=== PATIENT | male | born 1985 | race Caucasian/White ===

== ENCOUNTER 2017-10-18 16:13 | Emergency (ER) | payer MEDICAID ==
[~2017-10-18] VITALS: Ht 182.9 cm; Wt 99.8 kg
[2017-10-18 20:43] VITALS: BP 114/72
[2017-10-18] MEDS ORDERED: cefTRIAXone SOD 1,000 MG VL IM ONE (21:00)
[2017-10-18] MEDS ORDERED: ACETAMINOPHEN/CODEINE#3 (300/30mg) TAB PO ONE (21:00)
[2017-10-18] MEDS ORDERED: methylPREDNISolone SOD SUCC 125 MG/2 ML VL IM ONE (21:00)
[2017-10-18] MEDS ORDERED: LIDOCAINE 1% (LOCAL ANESTH.) PF 5ml SDV ONE (21:01)
== END 2017-10-18 21:44 | disposition home or self-care (01) ==
LOC: ER 16:13
DX: J40 Bronchitis, not specified as acute or chronic (principal); M25.561 Pain in right knee; F17.200 Nicotine dependence, unspecified, uncomplicated
CPT/HCPCS: 73562; 96372; 99284; J0696; J2930